=== PATIENT | male | born 1985 | race Caucasian/White ===

== ENCOUNTER 2019-07-27 00:40 | Emergency (ER) | payer SELFPAY ==
[~2019-07-27] VITALS: Ht 175.3 cm; Wt 93.4 kg
[2019-07-27 00:51] VITALS: BP 114/48
--- NOTE | 2019-07-27 00:53 | NUR ---
PT TO [facility].
--- NOTE | 2019-07-27 03:00 | NUR ---
PT AMBULATED TO BED 6.
--- NOTE | 2019-07-27 03:02 | NUR ---
34/M PRESENTED TO ED WITH C/O "2 SPIDER BITES" TO RT FOOT X1 WEEK, PAST FEW DAYS WORSENING W/ PAIN, REDNESS, SWELLING AND DRAINAGE. 5/10 SHARP INTERMITENT PAIN PROVOKED BY WALKING. DENIES N/V/D. NO FEVER PRESENT. STATES HE HASN'T BEEN TAKING MEDS TO [place] PAIN AT HOME. VSS. PMH ANXIETY DENIES RX DENIES ALLERGIES
--- NOTE | 2019-07-27 03:52 | NUR ---
Dr. Gonzalez examining patient.
[2019-07-27 04:13] VITALS: BP 110/60
--- NOTE | 2019-07-27 04:13 | NUR ---
PT DISCHARGED WITH PAPERWORK. RX KEFLEX. EDUCATED PT REGARDING MEDICATIONS AND S/E. EDCUATED PT REGARDING D/C DIAGNOSIS AND INSTRUCTIONS. PT VERBALIZED UNDERSTANDING OF TEACHING. TOLD PT TO FOLLOW UP WITH PCP AND WHEN TO RETURN TO ED. PT VSS. ALL QUESTIONS ANSWERED.
== END 2019-07-27 04:13 | disposition home or self-care (01) ==
LOC: MED 00:40
DX: S90.861A Insect bite (nonvenomous), right foot, initial encounter (principal); L03.115 Cellulitis of right lower limb; F41.9 Anxiety disorder, unspecified; W57.XXXA Bitten or stung by nonvenomous insect and other nonvenomous arthropods, initial encounter; Y93.89 Activity, other specified; Y92.89 Other specified places as the place of occurrence of the external cause; Y99.8 Other external cause status
CPT/HCPCS: 99283